=== PATIENT | male | born 1975 | race Asian ===

== ENCOUNTER 2023-11-23 09:42 | Outpatient (AMB) | payer OTHER, SELFPAY ==
[2023-11-23 09:46] VITALS: BP 120/88; PULSE 68; RESP 13; TEMP 36.7; O2SAT 100; BMI 23.8
--- NOTE | 2023-11-23 09:46 | MHC.PC.OV ---
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 Patient carries [employer] insurance. Patient requests routine labs. Patient takes duloxetine, certirizine, methimazole, propranolol. Reinstatement Clerk Required: No Accompanied by: Self / Same As Patient Allergies lamotrigine Allergy (Severe, Verified 11/23/23 10:15) Anaphylaxis Medication List - Last Reconciled 11/24/23 by ROXANNE Anderson- duloxetine 60 mg PO DAILY methimazole 10 mg PO BID propranolol 20 mg PO BID Tobacco use date assessed: 11/23/23 Dental Screening Dental Screen Date: 11/23/23 Did you have a dental visit in the last 12 months?: Yes Did you have a dental problem in the last 6 months where you did not have access to dental care?: No Was dental information given to patient?: Patient has dentist HPI HPI Comments History of Present Illness Details 48 y/o M with graves disease, MDD Surgery - none *[facility] 90 days Health Maintenance: Colon has never had one; referred today for open access colon. Tdap 2016 Specialists: Endo Optho Here today with no previous medical records. 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 Fercho dz - Optho exam in the last year; feels vision is poor at end of the day. Was losing wts, muscle cramps, palps prior to dx. Gained 30 lbs in 6 months after starting treatment Feels bloated at time. Like going to pop [place] w some swelling in his fingers. Comes and goes. Cannot correlate w/ diet. Chronic constipation. Taking miralax and dulcolax. BM every 2-3 days. In the afternoon, 3-4 pm has chills, started in the winter time. MDD - on cymbalta. Feels it is working. PHQ reviewed. Interested in counseling. [facility] Medical History (Updated 11/23/23 @ 10:40 by Vi Rashid [facility]) Depression Graves disease Surgical History (Updated 11/23/23 @ 09:58 by Slime Manrique FRAME ALIGNER) No pertinent past surgical history Social History (Updated 11/23/23 @ 09:58 by Slime Manrique [facility]) Household Members: None Housing: Apartment Are you a primary patient care secretary to a significant other at home: No Do you presently have visiting nurse or other home services: No 75 years or older and lives alone: No Alcohol intake: never Patient Tobacco Use Status: Never used Tobacco e-Cigarette/Vaping Use: Never Used service: Yes ( [employer] ) Current occupational status: employed 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 Has optho.) Questionnaire PHQ-9 Over the last 2 weeks, how often have you been bothered by any of the following problems? 1. Little interest or pleasure in doing things: several days 2. Feeling down, depressed, or hopeless: not at all 3. Trouble falling or staying asleep, or sleeping too much: several days 4. Feeling tired or having little energy: more than half the days 5. Poor appetite or overeating: not at all 6. Feeling bad about yourself - or that you are a failure or have let yourself or your family down: not at all 7. Trouble concentrating on things, such as reading the newspaper or watching television: several days 8. Moving or speaking so slowly that other people could have noticed. Or the opposite - being so fidgety or restless that you have been moving around a lot more than usual: not at all 9. Thoughts that you would be better off or of hurting yourself in some way: not at all Total score: 5 Depression Screening Interpretation: Positive Depression Screening Follow-up: In treatment Depression Screening Done: Yes 01395 - PHQ-9 Billing: Yes Source: Developed by Drs. Ramiro Moreira, Rosita Pereyra, Rachid Barriga and colleagues, with an educational cem from [employer]. Thrive Questionnaire Date Thrive assessed: 11/23/23 I am a: Patient Within the past 12 months, did the food you bought not last and you didn't have the money to get more?: Never true Within the past 12 months, did you worry whether your food would run out before you got money to buy more?: Never true Do you have trouble paying for medicines?: No Do you have trouble getting transportation to medical appointments?: No Do you have trouble paying your heating and electricity bill?: No Do you have trouble taking care of your child, family member or friend?: No Do you have trouble with day-to-day activities such as bathing, preparing meals, shopping, managing finances, etc.?: No Are you currently unemployed and looking for a job?: No Please select the resources that you would like help with: None Currently or been in a relationship where the following occur: no concerns reported THRIVE Score: 0 AUDIT C Alcohol Use Questionnaire (AUDIT-C) 1. How often do you have a drink containing alcohol?: Never 3. How often do you have six or more drinks on one occasion?: Never Total Score: 0 Score Reviewed/Action Taken: Yes MANDI-7 AMB Questionnaire MANDI-7 Date MANDI - 7 assessed: 11/23/23 Feeling nervous, anxious, or on edge: 0 = Not at all Not being able to stop or control worryin = Not at all Worrying too much about different things: 0 = Not at all Trouble relaxin = Not at all Being so restless that it is hard to sit still: 0 = Not at all Becoming easily annoyed or irritable: 1 = Several days Feeling afraid as if something awful might happen: 0 = Not at all Total MANDI-7 score (0-4 normal; 5-9 mild; 10-14 moderate; 15-21 severe): 1 Source: Developed by Drs. Ramiro Moreira, Rosita Pereyra, Rachid Barriga and colleagues, with an educational cem from [employer]. MANDI-7 Assessment Billing MANDI-7 Assessment Tool: MANDI-7 Assessment 30759 Review of Systems Const All systems reviewed & are unremarkable except as noted in HPI and below Physical exam (Primary Care) Vital Signs: Last Vital Signs Temp 98.1 F 11/23/23 09:46 Pulse 68 11/23/23 09:46 Resp 13 11/23/23 09:46 BP 120/88 11/23/23 09:46 Pulse Ox 100 11/23/23 09:46 Oxygen Delivery Method Room Air 11/23/23 09:46 BMI result Body Mass Index 23.8 Tobacco/Smoking Status: Tobacco use Status Tobacco use date assessed 11/23/23 11/23/23 10:01 Patient Tobacco Use Status Never used Tobacco 11/23/23 10:01 e-Cigarette/Vaping Use Never Used 11/23/23 10:01 PHQ-9: PHQ-9 Score PHQ-9: Total score 5 11/23/23 10:41 Depression Screening Interpretation: Positive Depression Screening Follow-up: In treatment Thrive Assessment: Date of Thrive Assessment Date Thrive assessed 11/23/23 11/23/23 10:01 Currently or been in a relationship where the following occur: no concerns reported Const Other: Awake alert NAD PERRLA, EOMI, scleras nonicteric bilat Trachea midline, no thyroid tenderness RRR LS CTAB Abd soft, nontender, normoactive BS x 4 No edema BLE Mood and affect appropriate Assessment and Plan Assessment & Plan (1) Graves disease: Comment: Refer to endo for mgmt & to optho for routine eye exam At this time, cont medications. Code(s): E05.00 - Thyrotoxicosis with diffuse goiter without thyrotoxic crisis or storm (2) MDD (major depressive disorder): Comment: controlled on Cymbalta. Continue. Referred to counseling. Code(s): F32.9 - Major depressive disorder, single episode, unspecified Qualifiers: Active/Remission status: currently active Major depression episode severity: mild Major depression recurrence: recurrent Qualified Code(s): F33.0 - Major depressive disorder, recurrent, mild (3) Abdominal bloating: Comment: referred for colonoscopy and labs ordered Will f/u with labs once resulted. Cont to take Miralax and dulcolax to treat constipation. Code(s): R14.0 - Abdominal distension (gaseous) Plan This note is constructed using voice recognition software. While every effort has been made to ensure accuracy in shearer operator, still errors may have been included Sometimes, these errors may affect the content or meaning of the given sentence . Total time spent caring for the patient today was 45 minutes. This includes time spent before the visit reviewing the chart, time spent during the visit, and time spent after the visit on documentation Orders: Orders Comprehensive Met. Panel 11/23/23 E05.00 - Thyrotoxicosis with diffuse goiter without thyrotoxic crisis or storm LDL Cholesterol Direct 11/23/23 E05.00 - Thyrotoxicosis with diffuse goiter without thyrotoxic crisis or storm PSA, Ultra Sensitive 11/23/23 E05.00 - Thyrotoxicosis with diffuse goiter without thyrotoxic crisis or storm Transglutaminase Ab IgG 11/23/23 R14.0 - Abdominal distension (gaseous) TSH reflex Free T4 11/23/23 E05.00 - Thyrotoxicosis with diffuse goiter without thyrotoxic crisis or storm Hemoglobin A1c 11/23/23 E05.00 - Thyrotoxicosis with diffuse goiter without thyrotoxic crisis or storm Microalbumin, Random (w Creat) 11/23/23 E05.00 - Thyrotoxicosis with diffuse goiter without thyrotoxic crisis or storm Amylase 11/23/23 R14.0 - Abdominal distension (gaseous) Lipase 11/23/23 R14.0 - Abdominal distension (gaseous) Hepatitis A,B,C Profile 11/23/23 R14.0 - Abdominal distension (gaseous) Transglutaminase IgA 11/23/23 R14.0 - Abdominal distension (gaseous) Referrals Endocrinology Referral E05.00 - Thyrotoxicosis with diffuse goiter without thyrotoxic crisis or storm Ophthalmology Referral E05.00 - Thyrotoxicosis with diffuse goiter without thyrotoxic crisis or storm Counseling Referral F32.9 - Major depressive disorder, single episode, unspecified Open Access Screening Colonoscopy Referral Z12.11 - Encounter for screening for malignant neoplasm of colon, Z12.12 - Encounter for screening for malignant neoplasm of rectum Medications: New methimazole 10 mg PO BID 180 tabs 0RF duloxetine 60 mg PO DAILY 90 caps 1RF propranolol 20 mg PO BID 180 tabs 0RF Patient Instructions: RTO IN 4-6 MONTHS FOR CPE, SOONER PRN Coding Level of Care Code New Pt Level 4 (11749) Diagnoses Graves disease E05.00 Mild episode of recurrent major depressive disorder F33.0 Active/Remission status: currently active Major depression episode severity: mild Major depression recurrence: recurrent Abdominal bloating R14.0 Additional Codes MANDI-7 Assessment Billing - MANDI-7 Assessment Tool: MANDI-7 Assessment 23048 ([id number])
== END 2023-11-23 10:47 | disposition home or self-care (01) ==
PROVIDERS: PCP Nurse Practitioner Family; Visit Provider Nurse Practitioner Family
DX: E05.00 Thyrotoxicosis with diffuse goiter without thyrotoxic crisis or storm (principal); F33.0 Major depressive disorder, recurrent, mild; R14.0 Abdominal distension (gaseous)
CPT/HCPCS: 99204

== ENCOUNTER 2023-11-23 10:34 | Outpatient (REF) | payer OTHER, SELFPAY ==
[2023-11-23 15:36] LABS: Creatinine Urine 123.52 mg/dL; Microalbumin Urine < 5.0 mg/L
[2023-11-23 15:50] LABS: Estimated Average Glucose 126 mg/dL
[2023-11-23 15:59] LABS: Alanine Aminotransferase 24 U/L (0-40); Albumin Level 4.5 g/dL (3.5-5.0); Alkaline Phosphatase 163 U/L (39-117); Amylase 60 U/L (28-100); Anion Gap 11 (12-20); Aspartate Amino Transferase 26 U/L (5-37); Bilirubin Total 0.4 mg/dL (0.0-1.0); Blood Urea Nitrogen 14 mg/dL (9-16); Calcium 9.5 mg/dL (8.4-10.2); Carbon Dioxide 29 mmol/L (22-29); Chloride 101 mmol/L (96-108); Estimated Glomerular Filt Rate > 60; Glucose Random 112 mg/dL (60-115); Lipase 32 U/L (8-78); Potassium 4.4 mmol/L (3.3-5.1); Sodium 137 mmol/L (135-145); Total Protein 7.6 g/dL (6.5-8.0)
[2023-11-23 16:39] LABS: TSH reflex Free T4 4.17 uIU/mL (0.32-4.0)
[2023-11-23 17:47] LABS: Free T4 (Free Thyroxine) 1.01 ng/dL (0.71-1.85)
[2023-11-24 08:08] LABS: HBS Num1 275.55 mIU/mL (0-7.99); HBc Num1 0.11 S/CO (0.00-0.79); HBsAGNum1 0.33 S/CO (0.00-0.99); Hepatitis A Antibody IgM 0.45 Index (0-0.79); Hepatitis B Core Antibody Nonreactive (Nonreactive); Hepatitis B Surface Antigen Negative (Negative); ~HepC Num1 0.08 S/CO (0.00-0.79); ~Hepatitis A Antibody IgM Nonreactive (Nonreactive); ~Hepatitis B Surface Antibody REACTIVE (Nonreactive); ~Hepatitis C Antibody Nonreactive (Nonreactive)
[2023-11-24 11:23] LABS: LDL Cholesterol Direct 152 mg/dL (<100)
[2023-11-24 20:48] LABS: Transglutaminase Ab IgG <1.0 U/mL; Transglutaminase IgA <1.0 U/mL
[2023-11-29 23:28] LABS: PSA, Ultra Sensitive 0.15 ng/mL
== END 2023-11-23 10:35 | disposition home or self-care (01) ==
LOC: HO.WFDLDS 10:34
PROVIDERS: Visit Provider Nurse Practitioner Family
DX: R14.0 Abdominal distension (gaseous) (principal); E05.00 Thyrotoxicosis with diffuse goiter without thyrotoxic crisis or storm; Z12.5 Encounter for screening for malignant neoplasm of prostate
CPT/HCPCS: 36415; 80053; 82043; 82150; 82570; 83036; 83690; 83721; 84153; 84439; 84443; 86364; 86704; 86706; 86709; 86803; 87340

== ENCOUNTER 2024-03-12 08:02 | Outpatient (AMB) | payer OTHER, SELFPAY ==
--- NOTE | 2024-03-12 08:03 | MHC.PC.OV ---
Vital Signs 03/12/24 08:10 Height 5 ft 7 in Weight 148 lb 2 oz BMI 23.2 BP 122/84 Blood Pressure Location Lt brachial Position Sitting Respiration 14 Pulse 95 Pulse Source Pulse Oximeter Pulse Oximetry (%) 94 Oxygen Delivery Method Room Air Intake Visit Reasons: 4-6 months CPE with me Intake Note: Physical Allergies lamotrigine Allergy (Severe, Verified 03/12/24 08:20) Anaphylaxis Medication List - Last Reconciled 03/12/24 by Vi Rashid, [facility]- duloxetine 60 mg PO DAILY Tobacco use date assessed: 03/12/24 Dental Screening Dental Screen Date: 11/23/23 HPI HPI Comments History of Present Illness Details 48 y/o M with graves disease, MDD, prediabetes, hyperlipidemia Surgery - none 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 Did have appt w/ Endo. Advised to stop methimazole, did this a few weeks ago. Feeling normal since stopping. has routine fu scheduled. Never got a call to schedule eye appt or colon. Asked to get this info from front end java developer today to schedule. Did hear from counseling but forgot to f/u. He will f/u on this. Admits to lack of follow through in general. Scatter brain sometimes. Discloses to me today for the 1st time that he has a child who lives in [place] who is terminally ill. She is 17 years old. He also reports that his is living in [place]. She is unable to relocate to [place] to live with him. He moved here for his current job, of which he values. 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 He is thinking about relocating back to [place] to be with his as well as to be closer to his daughter. GI: cont w/ chronic constipation. However bloating is better. Has lost some wt. MS: Right hip, acute on chronic intermittent pain. Last few weeks, feels achy, keeps him up @ night. Using meloxicam at HS and this helped. Has never seen Ortho for this. No physical therapy or imaging. Denies overt trauma, numbness, tingling. Describes pain as dull. Has tried stretching. Reviewed the following with him: Labs from 11/24/2023 show electrolytes, normal renal function, hemoglobin A1c of 6.0 163 LFTs, LDL elevated at 152, amylase and lipase normal, TSH 4.17, T4 1.01 normal urine microalbumin creatinine ratio, negative tissue transglutaminase IgG antibody, negative tissue transglutaminase IgA antibody, negative hepatitis profile, PSA normal, Plan: Start atorvastatin 20mg QD, repeat labs 6 months with OV. Life style mods. Lifestyle modifications for the prediabetes Nurse navigator referral for help access and resources for support groups related to having an ill child Offered and declined referral to Orthopedics and or x-ray of right hip today. Unremarkable physical exam. Advised to continue stretching. If any worsening, advised to let me know. repeat hemoglobin A1c and lipid profile in 6 months with an office visit to follow up. This note is constructed using voice recognition software. While every effort has been made to ensure accuracy in dog bather, still errors may have been included Sometimes, these errors may affect the content or meaning of the given sentence . [facility] Medical History (Updated 03/12/24 @ 12:28 by Vi Rashid [facility]) Depression Graves disease Surgical History (Updated 11/23/23 @ 09:58 by Slime Manrique [facility]) No pertinent past surgical history Social History (Updated 11/23/23 @ 09:58 by Slime Manrique [facility]) Household Members: None Housing: Apartment Are you a primary animal care technician to a significant other at home: No Do you presently have visiting nurse or other home services: No 75 years or older and lives alone: No Alcohol intake: never Patient Tobacco Use Status: Never used Tobacco e-Cigarette/Vaping Use: Never Used service: Yes ( [employer] ) Current occupational status: employed 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 Cognitive needs: No Hearing needs: No Vision needs: Yes (wears glasses- near sighted. Has optho.) Questionnaire PHQ-9 Over the last 2 weeks, how often have you been bothered by any of the following problems? 1. Little interest or pleasure in doing things: several days 2. Feeling down, depressed, or hopeless: several days 3. Trouble falling or staying asleep, or sleeping too much: several days 4. Feeling tired or having little energy: several days 5. Poor appetite or overeating: not at all 6. Feeling bad about yourself - or that you are a failure or have let yourself or your family down: not at all 7. Trouble concentrating on things, such as reading the newspaper or watching television: not at all 8. Moving or speaking so slowly that other people could have noticed. Or the opposite - being so fidgety or restless that you have been moving around a lot more than usual: not at all 9. Thoughts that you would be better off or of hurting yourself in some way: not at all Total score: 4 Depression Screening Interpretation: Positive Depression Screening Done: Yes 94698 - PHQ-9 Billing: Yes Source: Developed by Drs. Ramiro Moreira, Rachid Johnston and colleagues, with an educational cem from [employer]. Thrive Questionnaire Date Thrive assessed: 11/23/23 MANDI-7 AMB Questionnaire MANDI-7 Date MANDI - 7 assessed: 03/12/24 Feeling nervous, anxious, or on edge: 0 = Not at all Not being able to stop or control worryin = Not at all Worrying too much about different things: 0 = Not at all Trouble relaxin = Not at all Being so restless that it is hard to sit still: 0 = Not at all Becoming easily annoyed or irritable: 1 = Several days Feeling afraid as if something awful might happen: 0 = Not at all Total MANDI-7 score (0-4 normal; 5-9 mild; 10-14 moderate; 15-21 severe): 1 Source: Developed by Drs. Ramiro Moreira, Rachid Johnston and colleagues, with an educational cem from [employer]. MANDI-7 Assessment Billing MANDI-7 Assessment Tool: MANDI-7 Assessment 24126 Physical exam (Primary Care) Vital Signs: Last Vital Signs Pulse 95 03/12/24 08:10 Resp 14 08/05/24 08:10 BP 122/84 03/12/24 08:10 Pulse Ox 94 03/12/24 08:10 Oxygen Delivery Method Room Air 03/12/24 08:10 BMI result Body Mass Index 23.2 Tobacco/Smoking Status: Tobacco use Status Tobacco use date assessed 03/12/24 03/12/24 08:12 Patient Tobacco Use Status Never used Tobacco 03/12/24 08:03 e-Cigarette/Vaping Use Never Used 03/12/24 08:03 PHQ-9: PHQ-9 Score PHQ-9: Total score 4 03/12/24 08:15 Depression Screening Interpretation: Positive Thrive Assessment: Date of Thrive Assessment Date Thrive assessed 11/23/23 03/12/24 08:03 Const Other: General: Well developed, well nourished, in no acute distress. Appears stated age. Head: Normocephalic, atraumatic. Eyes: Pupils are equal, round and reactive to light and accommodation. Conjunctivae are clear. Vision grossly normal. Ears: TMs clear AU, EACS WNL Nose: Patent, without discharge. Mouth: There are no ulcers or lesions noted. No inflammation, no post nasal drip, no plaques nor exudates. Neck: Supple, no adenopathy or thyromegaly. Lungs: Clear to auscultation bilaterally. No rales, rhonchi or wheeze noted. Good air flow in all phillips. Heart: Regular rate and rhythm. No murmurs, click, rubs or gallops are noted. Abdomen: Bowel sounds present in all quadrants. The abdomen is soft, nontender, with no masses or organomegaly noted. No hernias are noted. Musculoskeletal: Joints are nontender, without swelling, redness, or effusions. Range of motion is observed to be normal. Pulses: Peripheral pulses are equal and palpable bilaterally. Full range of motion right hip, unable to reproduce the pain that he complains of. Extremities: No clubbing, cyanosis nor edema is noted. Neurologic: Gait and station normal. Cranial Nerves 2-12 intact. Motor strength grossly symmetrical and intact. No sensory loss. Balance normal. Skin: No rashes, ulcers, or lesions noted. Turgor is good. Skin color is good. Hair and nails are without abnormalities. Psych: Normal eye contact, affect and mood appropriate, and normal interactions. Patient is alert and appropriate to context. Assessment and Plan Assessment & Plan (1) Encounter for general adult medical examination without abnormal findings: Code(s): Z00.00 - Encounter for general adult medical examination without abnormal findings (2) MDD (major depressive disorder): Comment: controlled on Cymbalta. Continue. Referred to counseling. Code(s): F32.9 - Major depressive disorder, single episode, unspecified Qualifiers: Active/Remission status: currently active Major depression episode severity: mild Major depression recurrence: recurrent Qualified Code(s): F33.0 - Major depressive disorder, recurrent, mild (3) Hyperlipidemia: Code(s): E78.5 - Hyperlipidemia, unspecified Qualifiers: Hyperlipidemia type: mixed hyperlipidemia Qualified Code(s): E78.2 - Mixed hyperlipidemia (4) Prediabetes: Code(s): R73.03 - Prediabetes (5) Graves disease: Comment: active w/ endo for mgmt & to optho for routine eye exam Code(s): E05.00 - Thyrotoxicosis with diffuse goiter without thyrotoxic crisis or storm (6) Chronic right hip pain: Code(s): M25.551 - Pain in right hip; G89.29 - Other chronic pain Orders: Orders Lipid Panel 08/08/24 E78.5 - Hyperlipidemia, unspecified, R73.03 - Prediabetes Hemoglobin A1c 08/08/24 E78.5 - Hyperlipidemia, unspecified, R73.03 - Prediabetes Referrals Nurse Navigator Referral F33.0 - Major depressive disorder, recurrent, mild Medications: New atorvastatin 20 mg PO BEDTIME 90 tabs 1RF Patient Instructions: Health screenings for men ages 40 to 64 You should visit your health care provider regularly, even if you feel healthy. The purpose of these visits is to: Screen for medical issues Assess your risk for future medical problems Encourage a healthy lifestyle Update vaccinations and other preventive care services Help you get to know your provider in case of an illness Information Even if you feel fine, you should still see your provider for regular checkups. These visits can help you avoid problems in the future. For example, the only way to find out if you have high blood pressure is to have it checked regularly. High blood sugar and high cholesterol level also may not have any symptoms in the early stages. Simple blood tests can check for these conditions. There are specific times when you should see your provider or receive specific health screenings. The [place] Preventive Services Task Force publishes a list of recommended screenings. Below are screening guidelines for men ages 40 to 64. BLOOD PRESSURE SCREENING Have your blood pressure checked at least once every year. Watch for blood pressure screenings in your area. Ask your provider if you can stop in to have your blood pressure checked. Ask your provider if you need your blood pressure checked more often if: You have diabetes, heart disease, kidney problems, or are overweight or have certain other health conditions You have a first-degree relative with high blood pressure You are Black Your blood pressure top number is from 120 to 129 mm Hg, or the bottom number is from 70 to 79 mm Hg If the top number is 130 mm Hg or greater or the bottom number is 80 mm Hg or greater, this is considered stage 1 hypertension. Schedule an appointment with your provider to learn how you can lower your blood pressure. Effects of age on blood pressure CHOLESTEROL SCREENING Cholesterol screening should begin at age 35 for men with no known risk factors for coronary heart disease. Repeat cholesterol screening should take place: Every 5 years for men with normal cholesterol levels More often if changes occur in lifestyle (including weight gain and diet) More often if you have diabetes, heart disease, kidney problems, or certain other conditions COLORECTAL CANCER SCREENING If you are under age 45, talk to your provider about getting screened. You may need to be screened if you have a strong family history of colon cancer or polyps. Screening may also be considered if you have risk factors such as a history of inflammatory bowel disease or polyps. If you are age 45 to 75, you should be screened for colorectal cancer. There are several screening tests available: A stool-based fecal occult blood (gFOBT) or fecal immunochemical test (FIT) every year A stool sDNA test every 1 to 3 years Flexible sigmoidoscopy every 5 years or every 10 years with stool testing FIT done every year CT colonography (virtual colonoscopy) every 5 years Colonoscopy every 10 years You may need a colonoscopy more often if you have risk factors for colorectal cancer, such as: Ulcerative colitis A personal or family history of colorectal cancer A history of growths in your colon called adenomatous polyps DENTAL EXAM Go to the dentist once or twice every year for an exam and cleaning. Your dentist will evaluate if you have a need for more frequent visits. DIABETES SCREENING All adults who do not have risk factors for diabetes should be screened starting at age 35 and repeated every 3 years. If you have other risk factors for diabetes, such as a first degree relative with diabetes, overweight or obesity, high blood pressure, prediabetes, or a history of heart disease, you may be tested more often. If you are overweight and have other risk factors, such as high blood pressure and are planning to become , screening is recommended. EYE EXAM Have an eye exam every 2 to 4 years ages 40 to 54 and every 1 to 3 years ages 55 to 64. Your provider may recommend more frequent eye exams if you have vision problems or glaucoma risk. Have an eye exam that includes an examination of your retina (back of your eye) at least every year if you have diabetes. IMMUNIZATIONS Commonly needed vaccines include: Flu shot: get one every year COVID-19 vaccine: ask your provider what is best for you Tetanus-diphtheria and acellular pertussis (Tdap) vaccine: have as one of your tetanus-diphtheria vaccines if you did not receive it as an adolescent Tetanus-diphtheria: have a booster (or Tdap) every 10 years Varicella vaccine: receive 2 doses if you never had chickenpox or the varicella vaccine and were born in 1980 or after Hepatitis B vaccine: receive 2, 3, or 4 doses, depending on your exact circumstances, if you did not receive these as a child or adolescent, until age 59 Shingles (herpes zoster) vaccine: at or after age 50 Ask your provider if you should receive other immunizations, especially if you have certain medical conditions, such as diabetes or are at increased risk for some diseases such as pneumonia. INFECTIOUS DISEASE SCREENING Screening for hepatitis C: all adults ages 18 to 79 should get a one-time test for hepatitis C. Screening for human immunodeficiency virus (HIV): all people ages 15 to 65 should get a one-time test for HIV. Depending on your lifestyle and medical history, you may need to be screened for infections such as syphilis, chlamydia, and other infections. LUNG CANCER SCREENING You should have an annual screening for lung cancer with low-dose computed tomography (LDCT) if: You are age 50 to 80 years AND You have a 20 pack-year smoking history AND You currently smoke or have quit within the past 15 years OSTEOPOROSIS SCREENING If you are age 50 to 64 and have risk factors for osteoporosis, you should discuss screening with your provider. Risk factors can include long-term steroid use, low body weight, smoking, heavy alcohol use, having a fracture after age 50, or a family history of hip fracture or osteoporosis. Osteoporosis PHYSICAL EXAM All adults should visit their provider from time to time, even if they are healthy. The purpose of these visits is to: Screen for diseases Assess risk of future medical problems Encourage a healthy lifestyle Update vaccinations and other preventive care services Maintain a relationship with a provider in case of an illness Your height, weight, and body mass index (BMI) should be checked at every exam. During your exam, your provider may ask you about: Depression and anxiety Diet and exercise Alcohol and tobacco use Safety, such as use of seat belts and smoke detectors Your medicines and risk for interactions PROSTATE CANCER SCREENING If you're 55 through 69 years old, before having the test, talk to your provider about the pros and cons of having a PSA test. Ask about: Whether screening decreases your chance of dying from prostate cancer. Whether there is any harm from prostate cancer screening, such as side effects from testing or overtreatment of cancer when discovered. Whether you have a higher risk of prostate cancer than others. If you are age 55 or younger, screening is not generally recommended. You should talk with your provider about if you have a higher risk for prostate cancer. Risk factors include: Having a family history of prostate cancer (especially a brother or father) Being If you choose to be tested, the PSA blood test is repeated over time (yearly or less often), though the best frequency is not known. Prostate examinations are no longer routinely done on men with no symptoms. Prostate cancer SKIN EXAM Your provider may check your skin for signs of skin cancer, especially if you're at high risk. People at high risk include those who have had skin cancer before, have close relatives with skin cancer, or have a weakened immune system. TESTICULAR EXAM The US Preventive Services Task Force (USPSTF) now recommends against performing testicular self-exams. Doing testicular self-exams has been shown to have little to no benefit. Coding Level of Care Code Est Pt Prev Care 40-64y(27971) Diagnoses Encounter for general adult medical examination without abnormal findings Z00.00 Mild episode of recurrent major depressive disorder F33.0 Active/Remission status: currently active Major depression episode severity: mild Major depression recurrence: recurrent Mixed hyperlipidemia E78.2 Hyperlipidemia type: mixed hyperlipidemia Prediabetes R73.03 Graves disease E05.00 Chronic right hip pain M25.551; G89.29 Additional Codes MANDI-7 Assessment Billing - MANDI-7 Assessment Tool: MANDI-7 Assessment 30253 ([id number])
[2024-03-12 08:10] VITALS: BP 122/84; PULSE 95; RESP 14; O2SAT 94; BMI 23.2
== END 2024-03-12 08:52 | disposition home or self-care (01) ==
PROVIDERS: PCP Nurse Practitioner Family; Visit Provider Nurse Practitioner Family
DX: Z00.00 Encounter for general adult medical examination without abnormal findings (principal); F33.0 Major depressive disorder, recurrent, mild; E78.2 Mixed hyperlipidemia; R73.03 Prediabetes; E05.00 Thyrotoxicosis with diffuse goiter without thyrotoxic crisis or storm; M25.551 Pain in right hip; G89.29 Other chronic pain
CPT/HCPCS: 99396

== ENCOUNTER 2024-10-11 08:27 | Outpatient (AMB) | payer OTHER, SELFPAY ==
--- NOTE | 2024-10-11 08:28 | A.OFFPC_ITS ---
Vital Signs 10/11/24 08:33 Height 5 ft 7 in Weight 152 lb 6 oz BMI 23.9 BP 134/76 Blood Pressure Location Rt brachial Position Sitting Respiration 13 Pulse 93 Pulse Source Pulse Oximeter Temp 96.9 F Temp Source Oral Pulse Oximetry (%) 98 Oxygen Delivery Method Room Air Intake Visit Reasons: 6m 30 min lipids/ prediabetes Intake Note: follow up on prediabetes Risk Officer Required: No Allergies lamotrigine Allergy (Severe, Verified 10/11/24 08:45) Anaphylaxis Medication List - Last Reconciled 10/11/24 by Vi Rashid, CORPORATE SECURITY OFFICER- atomoxetine mg PO QAM atorvastatin 20 mg PO BEDTIME duloxetine 40 mg PO DAILY duloxetine mg PO DAILY valacyclovir mg PO PRN Tobacco use date assessed: 10/11/24 Dental Screening Dental Screen Date: 10/11/24 Did you have a dental visit in the last 12 months?: Yes Did you have a dental problem in the last 6 months where you did not have access to dental care?: No Was dental information given to patient?: Patient has dentist HPI HPI Comments History of Present Illness Details 49 y/o M with graves disease, MDD, predi abetes, hyperlipidemia, ADHD Surgery - none 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 - Graves' Disease management is coordina anny with endocrinology, missed last appt - Depression is managed with duloxetine, with plans to transition to atomoxetine following a decrease to 40 mg and increase of atomoxetine to 60 mg. The patient reports passive suicidal ideation, prompting psychiatric and counseling referrals. active w/ med rx but not counselor, working on this. new dx adhd - Hyperlipidemia is managed with atorvas tatin for 6 months, though the patient reports joint pain which might be associated with the medication. stopped it w/ no improvement, restarted it. changed diet. - Improved prediabetes management throug h dietary alterations has resulted in an A1c decrease from 6% to 5.3%. - Herpes Simplex Virus is managed with a s-needed valaciclovir, with no acute issues reported. - ADHD diagnosis has led to medication c hanges, with difficulties in scheduling and managing tasks noted. - The patient reports stress related to family affairs and job workload, impacting mental health. - Employed, experiencing increased workl oad. - Spouse is currently not residing with the patient, affecting emotional well- being. - Patient reports stress related to fami ly and professional responsibilities and mentions a sedentary lifestyle. - Occasional consumption of [employer] af fecting sleep patterns. Health Maintenance - A1c levels improved to 5.3% with dieta ry modifications. - Currently managing hyperlipidemia with atorvastatin. - Psychiatric and counseling referrals s uggested for cognitive and emotional support. - Ophthalmology referral has not been pu rsued yet. - Endocrinology follow-up for Graves' Di sease has lapsed, requiring updated labs including thyroid function tests. Review of Systems - Psychiatric: Reports passive suicidal ideation, ongoing depressive symptoms, and ADHD-related difficulties. - Musculoskeletal: Reports intermittent right hip pain. - Gastrointestinal: Reports constipation and bloating; using MiraLAX. - Neurology: Reports occasional dizzines s upon posture change. - General: Denies current acute physical complaints. Exam awake alert NAD scleras nonicteric thyroid nontender RRR LS CTAB Abd soft, nontender No edema BLE Mood flat, engaging, soft spoken Results - Labs: A1c level is 5.3%; Thyroid funct ion tests & cholesterol profile pending update post-consultation. Discussion Notes Today, I discussed the comprehensive management plan for the patient's chronic conditions, focusing on the appropriate adjustments in medication for depression and ADHD, managing hyperlipidemia, and maintaining glycemic control. I emphasized the need for compliance with endocrinology follow-ups for Graves' Disease and encouraged pursuit of ophthalmology and counseling referrals. We reviewed the potential side effects of atorvastatin and its possible link to musculoskeletal pain. Additionally, I advised the patient to contact support resources should his depressive symptoms worsen, and provided crisis contact information for urgent help. I obtained verbal consent from the patient for the planned lab tests and reiterated the importance of regular monitoring and timely management of all health conditions. Follow-up will be coordinated through the patient portal, ensuring he remains informed of his laboratory results once available. Assessment and Plan 1. Graves' Disease: Endocrinology follow -up required, with thyroid function assessment planned. Diagnostic labs will be ordered. 2. Major Depressive Disorder: Managing w ith duloxetine; transitioning to atomoxetine increased to 60 mg. Counseling services are suggested, and crisis support information was provided. 3. Hyperlipidemia: Continue atorvastatin therapy, with consideration of muscle pain assessment in follow-up. 4. Prediabetes: Monitor progress; dietar y management is effective. 5. Herpes Simplex Virus: Continue PRN tr eatment with valaciclovir. 6. Attention-Deficit/Hyperactivity Disor josie: Ongoing atomoxetine titration to 60 mg; patient support services are advised. Patient Instructions - Follow up with endocrinology for Grave s' Disease management. - Continue duloxetine as prescribed; rep ort any worsening depressive symptoms. - Monitor hip pain and inform if symptom s persist or worsen. - Maintain dietary changes for glycemic control. - Contact emergency support if experienc ing suicidal thoughts. - Pursue counseling services for depress daniel symptoms and supportive therapy. - Ensure compliance with regular lab stefano ck-ups and results tracking via the patient portal. - Schedule and attend ophthalmology and counseling referrals when possible. - RTO 6 months CPE sooner PRN Consent I discussed the goals and risks of all recommended lab tests and medication changes with the patient, emphasizing the importance of managing his chronic conditions adequately. The patient provided verbal consent for laboratory evaluations scheduled today, understanding both the benefits of ongoing monitoring and potential adverse effects of current medications. Patient was informed and verbally consented to the use of an ambient scribe for clinic note documentation during this visit. Total time spent caring for the patient today was 45 minutes. This includes time spent before the visit reviewing the chart, time spent during the visit, and time spent after the visit on documentation, reviewing laboratory results, diagnostic imaging, medications, performing a medically necessary evaluation, counseling on diagnoses, care coordination, ordering appropriate tests, ordering appropriate medications, review of tests performed by other providers, reporting test results with the patient, communication with other healthcare providers. [facility] Medical History (Updated 10/11/24 @ 17:23 by ROXANNE Anderson-) Depression Graves disease Surgical History (Updated 11/23/23 @ 09:58 by Slime Manrique [facility]) No pertinent past surgical history Social History (Updated 11/23/23 @ 09:58 by SHASHANK Harding Household Members: None Housing: Apartment Are you a primary caregiver services home to a significant other at home: No Do you presently have visiting nurse or other home services: No Alcohol intake: never Patient Tobacco Use Status: Never used Tobacco e-Cigarette/Vaping Use: Never Used service: Yes ( ) Current occupational status: employed 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 Has optho.) Questionnaire PHQ-9 Over the last 2 weeks, how often have you been bothered by any of the following problems? 1. Little interest or pleasure in doing things: not at all 2. Feeling down, depressed, or hopeless: not at all 3. Trouble falling or staying asleep, or sleeping too much: not at all 4. Feeling tired or having little energy: not at all 5. Poor appetite or overeating: not at all 6. Feeling bad about yourself - or that you are a failure or have let yourself or your family down: not at all 7. Trouble concentrating on things, such as reading the newspaper or watching television: not at all 8. Moving or speaking so slowly that other people could have noticed. Or the opposite - being so fidgety or restless that you have been moving around a lot more than usual: not at all 9. Thoughts that you would be better off or of hurting yourself in some way: not at all Total score: 0 Depression Screening Interpretation: Negative Depression Screening Done: Yes 69569 - PHQ-9 Billing: Yes Source: Developed by Drs. Ramiro Moreira, Rosita Pereyra, Rachid Barriga and colleagues, with an educational cem from [employer]. Thrive Questionnaire Date Thrive assessed: 10/11/24 I am a: Patient What is your living situation today?: I have a steady place to live Within the past 12 months, did the food you bought not last and you didn't have the money to get more?: Never true Within the past 12 months, did you worry whether your food would run out before you got money to buy more?: Never true Do you have trouble paying for medicines?: No Do you have trouble getting transportation to medical appointments?: No Do you have trouble paying your heating and electricity bill?: No Do you have trouble taking care of your child, family member or friend?: No Do you have trouble with day-to-day activities such as bathing, preparing meals, shopping, managing finances, etc.?: No Are you currently unemployed and looking for a job?: No Are you interested in more education?: No Currently or been in a relationship where the following occur: No concerns reported THRIVE Score: 0 AUDIT C Alcohol Use Questionnaire (AUDIT-C) 1. How often do you have a drink containing alcohol?: Never 3. How often do you have six or more drinks on one occasion?: Never Total Score: 0 Score Reviewed/Action Taken: Yes MANDI-7 AMB Questionnaire MANDI-7 Date MANDI - 7 assessed: 10/11/24 Feeling nervous, anxious, or on edge: 0 = Not at all Not being able to stop or control worryin = Not at all Worrying too much about different things: 0 = Not at all Trouble relaxin = Not at all Being so restless that it is hard to sit still: 0 = Not at all Becoming easily annoyed or irritable: 0 = Not at all Feeling afraid as if something awful might happen: 0 = Not at all Total MANDI-7 score (0-4 normal; 5-9 mild; 10-14 moderate; 15-21 severe): 0 Source: Developed by Drs. Ramiro Moreira, Rosita Pereyra, Rachid Barriga and colleagues, with an educational cem from [employer]. MANDI-7 Assessment Billing MANDI-7 Assessment Tool: MANDI-7 Assessment 21517 Physical exam (Primary Care) Vital Signs: Last Vital Signs Temp 96.9 F 10/11/24 08:33 Pulse 93 10/11/24 08:33 Resp 13 10/11/24 08:33 BP 134/76 10/11/24 08:33 Pulse Ox 98 10/11/24 08:33 Oxygen Delivery Method Room Air 10/11/24 08:33 BMI result Body Mass Index 23.9 Tobacco/Smoking Status: Tobacco use Status Tobacco use date assessed 10/11/24 10/11/24 08:31 Patient Tobacco Use Status Never used Tobacco 10/11/24 08:31 e-Cigarette/Vaping Use Never Used 10/11/24 08:31 PHQ-9: PHQ-9 Score PHQ-9: Total score 0 10/11/24 08:56 Depression Screening Interpretation: Negative Thrive Assessment: Date of Thrive Assessment Date Thrive assessed 10/11/24 10/11/24 08:31 Currently or been in a relationship where the following occur: No concerns reported Results AMB Hemoglobin A1c AMB Hemoglobin A1c 5.3 % Last Edit by Sanjay Bajwa MA on 10/11/24 08:47 Results Reviewed Results Reviewed: Laboratory Last Values Hgb A1c (Clinic) 5.3 % (4.0-6.0) 10/11/24 08:45 Coding Level of Care Code Est Pt Level 5 (48506) Complex EM visit Add On G2211 Diagnoses Graves disease E05.00 Mixed hyperlipidemia E78.2 Hyperlipidemia type: mixed hyperlipidemia Mild episode of recurrent major depressive disorder F33.0 Active/Remission status: currently active Major depression episode severity: mild Major depression recurrence: recurrent Prediabetes R73.03 Attention deficit hyperactivity disorder (ADHD), predominantly inattentive type F90.0 Attention deficit-hyperactivity disorder type: predominantly inattentive Additional Codes MANDI-7 Assessment Billing - MANDI-7 Assessment Tool: MANDI-7 Assessment 95132 ([id number]) PHQ-9 - 20070 - PHQ-9 Billing: Yes ([id number]) Assessment & Plan Assessment & Plan (1) Graves disease: Comment: active w/ endo for mgmt & to optho for routine eye exam Code(s): E05.00 - Thyrotoxicosis with diffuse goiter without thyrotoxic crisis or storm Category: Medical (2) Hyperlipidemia: Code(s): E78.5 - Hyperlipidemia, unspecified Category: Medical Qualifiers: Hyperlipidemia type: mixed hyperlipidemia Qualified Code(s): E78.2 - Mixed hyperlipidemia (3) MDD (major depressive disorder): Comment: on Cymbalta. Continue. Referred to counseling. Code(s): F32.9 - Major depressive disorder, single episode, unspecified Category: Medical Qualifiers: Active/Remission status: currently active Major depression episode severity: mild Major depression recurrence: recurrent Qualified Code(s): F33.0 - Major depressive disorder, recurrent, mild (4) Prediabetes: Code(s): R73.03 - Prediabetes Category: Medical (5) ADHD: Code(s): F90.9 - Attention-deficit hyperactivity disorder, unspecified type Category: Medical Qualifiers: Attention deficit-hyperactivity disorder type: predominantly inattentive Qualified Code(s): F90.0 - Attention-deficit hyperactivity disorder, predominantly inattentive type Plan . Orders: Orders AMB Hemoglobin A1c Today Z13.9 - Encounter for screening, unspecified TSH reflex Free T4 Today E05.00 - Thyrotoxicosis with diffuse goiter without thyrotoxic crisis or storm, E78.2 - Mixed hyperlipidemia, R73.03 - Prediabetes Comprehensive Met. Panel Today E05.00 - Thyrotoxicosis with diffuse goiter without thyrotoxic crisis or storm, E78.2 - Mixed hyperlipidemia, R73.03 - Prediabetes Medications: Changed From duloxetine 60 mg PO DAILY 90 caps 1RF To duloxetine 40 mg PO DAILY Patient Instructions: Crisis Hotlines Suicide prevention, domestic violence, and other crisis hotlines for youth, young adults, and their friends and families. [facility] [facility]: The [employer] Safeline helps youth who have run away, are thinking about running away, or who already ran away but are ready to come home. Parents and guardians can also contact the hotline if they are worried about their child running away or if their child has already left home. The hotline is available 24 hours a day, seven days a week. Youth, parents, and guardians can also use the online chat feature on the [facility]'s website to ask for help and get support, or [place] [address]. [facility] National Suicide Prevention Lifeline: The National Suicide Prevention Lifeline is a network of local crisis centers that are available 28/02 to provide support for youth and adults who are in any kind of emotional crisis. In addition to the main hotline number listed above, there are several other numbers to call depending on your needs: Serbian Language: Deaf and Hard of Hearin1-933.114.7474 Veterans: Disaster Distress: Anyone can also use their online chat feature on their website. National Suicide Prevention Lifeline [facility] Helpline: The [facility] Helpline is available to anyone in [place] who is need of emotional support. Anyone can call or text the helpline to receive help from specially trained volunteers. [place] high school and college students can also get online support through the IMHear_ program. For high school students, volunteers ages 15-18 are available Tuesday- from 6-9PM. For college students, [employer]_ is available Tuesday-Tuesday from 5-9PM. The Tommy Project - The Tommy Project is a 28/02 crisis intervention and suicide prevention hotline for LGBTQ youth. Youth can also text Tommy to for support, or use the online chat feature on the Tommy Project's website. [employer] is available Tuesday-Tuesday between 3-10PM. [employer] is available seven days a week between 3-10PM. SafeLink: SafeLink is for anyone who is being affected by domestic violence or dating violence. Volunteers at [employer] speak Japanese and Serbian, and [employer] also has a service that can provide translation in more than 130 languages. TTY:
[2024-10-11 08:33] VITALS: BP 134/76; PULSE 93; RESP 13; TEMP 36.1; O2SAT 98; BMI 23.9
--- OUTSIDE RECORDS SUMMARY | 2024-10-11 08:49 | XMS_ITS | Continuity of Care Document ---
Author Organization [facility] [address] [facility] [address] [facility] [address] [place] [address] Phone [phone] Problems Active Problems Provider Date Graves' disease Pan Tee M.D. Onset: 0 02/08/2024 Social History Type Date Description Comments Sex Unknown Lives With Spouse ETOH Use Denies alcohol use Tobacco Use Start: Unknown Patient has never smoked Allergies and adverse reactions Active Allergies Criticality Reaction Severity Comments Date Lamotrigine Unable to assess criticality 02/08/2024 Medications Active Medications SIG Qnty Indications Ordering Provider Date [id number] Tablets Take 1 Tablet By Mouth Twice A Day Unknown Duloxetine [id number] Caps DR Part Take 1 Capsule By Mouth Every Day Unknown Propranolol LSA14nx Tablets Take 1 Tablet By Mouth Twice A Day Unknown Vital Signs Date Vital Result Comment 02/08/2024 9:38am BP Systolic 112 mmHg BP Diastolic 70 mmHg Heart Rate 73 /min Height 67 inches 5'7 Weight 151.12 lb BMI (Body Mass Index) 23.7 kg/m2 Results Test Acquired Date Facility Test Result H/L Range N ote Laboratory test finding 02/08/2024 [facility] TSH Rfx on Abnormal to Free T4 1.350 uIU/mL 0.450-4.500 Procedures Date Code Description Status 07/19/2024 NSHOWOFF No Show Office Visit Complet ed Medical Devices Description No Information Available Encounters Type Date Location Provider Dx Diagnosis Office Visit 02/08/2024 9:30a Main Office Pan Tee M.D. 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 Plan of Treatment No Information Available Functional Status Description No Information Available Mental Status Description No Information Available Referrals Description No Information Available
== END 2024-10-11 09:09 | disposition home or self-care (01) ==
PROVIDERS: PCP Nurse Practitioner Family; Visit Provider Nurse Practitioner Family
DX: E05.00 Thyrotoxicosis with diffuse goiter without thyrotoxic crisis or storm (principal); E78.2 Mixed hyperlipidemia; F33.0 Major depressive disorder, recurrent, mild; R73.03 Prediabetes; F90.0 Attention-deficit hyperactivity disorder, predominantly inattentive type; Z13.9 Encounter for screening, unspecified

== ENCOUNTER → 2024-10-11 08:27 | Outpatient (BNVA) | payer OTHER, SELFPAY | PROVIDERS: PCP Nurse Practitioner Family; Visit Provider Nurse Practitioner Family | DX: E05.00 Thyrotoxicosis with diffuse goiter without thyrotoxic crisis or storm (principal); E78.2 Mixed hyperlipidemia; F33.0 Major depressive disorder, recurrent, mild; R73.03 Prediabetes; F90.0 Attention-deficit hyperactivity disorder, predominantly inattentive type; Z79.899 Other long term (current) drug therapy | CPT/HCPCS: 83036; 96127 ==

== ENCOUNTER 2024-10-11 09:13 | Outpatient (REF) | payer OTHER, SELFPAY ==
--- OUTSIDE RECORDS SUMMARY | 2024-10-11 10:14 | XMS_ITS | Continuity of Care Document ---
Author Organization [facility] [address] [facility] [address] [place] [address] Phone [phone] Problems Active Problems Provider Date Graves' disease Pan Tee M.D. Onset: 0 02/08/2024 Social History Type Date Description Comments Sex Unknown Lives With Spouse ETOH Use Denies alcohol use Tobacco Use Start: Unknown Patient has never smoked Allergies and adverse reactions Active Allergies Criticality Reaction Severity Comments Date Lamotrigine Unable to assess criticality 02/08/2024 Medications Active Medications SIG Qnty Indications Ordering Provider Date [id number] Tablets Take 1 Tablet By Mouth Twice A Day Unknown Duloxetine [id number] Caps DR Part Take 1 Capsule By Mouth Every Day Unknown Propranolol IUR25ic Tablets Take 1 Tablet By Mouth Twice [...]
[2024-10-11 12:32] LABS: Alanine Aminotransferase 33 U/L (0-40); Albumin Level 4.5 g/dL (3.5-5.0); Alkaline Phosphatase 127 U/L (39-117); Anion Gap 11 (12-20); Aspartate Amino Transferase 28 U/L (5-37); Bilirubin Total 0.3 mg/dL (0.0-1.0); Blood Urea Nitrogen 13 mg/dL (9-16); Calcium 9.2 mg/dL (8.4-10.2); Carbon Dioxide 29 mmol/L (22-29); Chloride 104 mmol/L (96-108); Cholesterol 185 mg/dL (<200); Estimated Glomerular Filt Rate > 60; Glucose Random 124 mg/dL (60-115); HDL Cholesterol 53 mg/dL (>40); LDL Cholesterol Calculated 117 mg/dL (<100); Potassium 4.4 mmol/L (3.3-5.1); Sodium 140 mmol/L (135-145); Total Protein 7.7 g/dL (6.5-8.0); Triglycerides 77 mg/dL (<150)
[2024-10-11 12:50] LABS: TSH reflex Free T4 21.07 uIU/mL (0.32-4.0)
[2024-10-11 13:23] LABS: Free T4 (Free Thyroxine) 0.76 ng/dL (0.71-1.85)
== END 2024-10-11 09:14 | disposition home or self-care (01) ==
LOC: HO.WFDLDS 09:13
PROVIDERS: Visit Provider Nurse Practitioner Family
DX: E78.2 Mixed hyperlipidemia (principal); R73.03 Prediabetes; E78.5 Hyperlipidemia, unspecified; E05.00 Thyrotoxicosis with diffuse goiter without thyrotoxic crisis or storm
CPT/HCPCS: 36415; 80053; 80061; 84439; 84443

== ENCOUNTER 2025-04-11 11:49 | Outpatient (AMB) | payer OTHER, SELFPAY ==
--- NOTE | 2025-04-11 11:50 | MHC.PC.OV ---
Vital Signs 04/11/25 11:56 04/11/25 12:34 Height 5 ft 7 in Weight 145 lb 2 oz BMI 22.7 BP 144/82 H 128/68 Blood Pressure Location Rt brachial Rt brachial Position Sitting Sitting Respiration 13 Pulse 82 Pulse Source Pulse Oximeter Temp 96.9 F Temp Source Oral Pulse Oximetry (%) 100 Oxygen Delivery Method Room Air Intake Visit Reasons: 6 mo CPE Intake Note: CPE. [facility] told he had high blood pressure she needs to follow up on. 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 Required: No Allergies lamotrigine Allergy (Severe, Verified 04/11/25 12:18) Anaphylaxis Medication List - Last Reconciled 04/11/25 by ROXANNE Anderson-BC atomoxetine mg PO QAM atorvastatin 20 mg PO BEDTIME duloxetine 40 mg PO DAILY duloxetine mg PO DAILY valacyclovir 500 mg PO BID PRN Tobacco use date assessed: 04/11/25 Dental Screening Dental Screen Date: 04/11/25 Did you have a dental visit in the last 12 months?: Yes Did you have a dental problem in the last 6 months where you did not have access to dental care?: No Was dental information given to patient?: Patient has dentist HPI HPI Comments History of Present Illness Details 49 y/o M with graves disease, MDD, prediabetes, hyperlipidemia, ADHD Surgery - none 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 Specialists: [facility] Dr Pan Tee 12/2024 recommended stopping methimazole -- [facility]/psychiatry - no longer active History of Present Illness - The patient is a 49-year-old male presenting for a complete physical exam. - Has history of anxiety, depression, ADHD, managed by duloxetine. No longer active w/ prescriber. Mom . Got . Denies si/hi. Mood stable. I will cover duloxetine refills. Bought [employer] in [place], [place]. -Graves? disease active w/ endocrinology- due for fu and repeat labs. i will order today and cc results. he cont on methimazole. - hyperlipidemia managed with atorvastatin. + intentional wt loss. - HSV controlled. - BP SBP > 140 today and at outside office visit. Denies cardiac sx. Recheck WNL Health Maintenance - Colonoscopy scheduled for April 16 - Tetanus shot up to date, administered in 2015. - Received shingles vaccine, both doses. - Recommended flu vaccination - Eye exam conducted within last two years. Wears glasses. Review of Systems - General: Denies significant weight loss. - Cardiovascular: No chest pain; recent blood pressures elevated. - Endocrine: Concerns regarding management of Graves? disease. - Musculoskeletal: Past muscle aches. - Psychiatric: Reports stress management, well-controlled with medication. - Genitourinary: Recent STD screening. Physical Exam General: Well developed, well nourished, in no acute distress. Appears stated age. Head: Normocephalic, atraumatic. Eyes: Pupils are equal, round and reactive to light and accommodation. Conjunctivae are clear. Vision grossly normal. Ears: TMs clear AU, EACS WNL Nose: Patent, without discharge. Neck: Supple, no adenopathy or thyromegaly. Breast: Edu on SBE Lungs: Clear to auscultation bilaterally. No rales, rhonchi or wheeze noted. Good air flow in all phillips. Heart: Regular rate and rhythm. No murmurs, click, rubs or gallops are noted. Abdomen: Bowel sounds present in all quadrants. The abdomen is soft, nontender, with no masses or organomegaly noted. No hernias are noted. : Deferred. Reviewed JENNYFER & recommendation Pulses: Peripheral pulses are equal and palpable bilaterally. Extremities: No clubbing, cyanosis nor edema is noted. Neurologic: Gait and station normal. Cranial Nerves 2-12 intact. Motor strength grossly symmetrical and intact. No sensory loss. Balance normal. Skin: No rashes, ulcers, or lesions noted. Turgor is good. Skin color is good. Hair and nails are without abnormalities. Psych: Normal eye contact, affect and mood appropriate, and normal interactions. Patient is alert and appropriate to context. Results Pending Discussion Notes During this visit, we discussed the concerns about the management of his Graves' disease medications, noting his jewish thought professor's recent advice against long-term use. Yet, the patient continues due to stable previous lab values. His depressive and ADHD symptoms were discussed in relation to past medication adjustments that were unsuccessful; the patient reverted to duloxetine, which he finds stabilizes his condition amidst stress. We reviewed lifestyle changes including recent relocation and job satisfaction despite ongoing personal life changes. I recommended flu vaccination despite reported adverse effects, and encouraged premedication with acetaminophen. Future lab work, including thyroid levels, was outlined with consultations anticipated to coordinate care with the jewish thought professor. Patient was given time to ask questions. All questions were answered to their satisfaction. Assessment and Plan 1. Anxiety and Depression - Continue current regimen of duloxetine. 2. Attention-Deficit/Hyperactivity Disorder - Controlled with current duloxetine use. 3. Hyperlipidemia - Maintain atorvastatin therapy. 4. Graves? Disease - Continue medication, discuss further with jewish thought professor. 5. Prediabetes - Monitor labs today. 6. Preventive Testing/Procedures - Proceed with planned colonoscopy; monitor blood pressure regularly, if SBP remains > 140, please call ; flu vaccine discussions on adverse effects and premedication. Patient Instructions - Continue taking prescribed medications as advised. - Monitor your blood pressure and report any consistent readings over 140 mmHg. - Schedule flu vaccination and consider taking acetaminophen to reduce side effects. - Undergo the scheduled colonoscopy and follow any prep instructions. - Notify your jewish thought professor of your lab results. - Contact the office if symptoms worsen or new issues arise. - RTO 6 mo mood/lipids/labs, sooner as needed Consent Patient was informed and verbally consented to the use of an ambient scribe for clinic note documentation during this visit. An additional 10 minutes was spent addressing the problem(s) noted at todays visit. This includes time spent before the visit reviewing the chart, time spent during the visit, and time spent after the visit on documentation reviewing laboratory results, diagnostic imaging, medications, performing a medically necessary evaluation, counseling on diagnoses, care coordination, ordering appropriate tests, ordering appropriate medications, review of tests performed by other providers, reporting test results with the patient, communication with other healthcare providers. [facility] Medical History (Updated 04/11/25 @ 12:48 by MANUELA Anderson) Depression Graves disease Surgical History (Updated 11/23/23 @ 09:58 by Slime Manrique CMA) No pertinent past surgical history Social History (Updated 11/23/23 @ 09:58 by Slime Manrique CMA) Household Members: None Housing: Apartment Are you a primary summer child caregiver to a significant other at home: No Do you presently have visiting nurse or other home services: No 75 years or older and lives alone: No Alcohol intake: never Patient Tobacco Use Status: Never used Tobacco e-Cigarette/Vaping Use: Never Used service: Yes ( [employer] ) Current occupational status: employed 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 Has optho.) Questionnaire PHQ-9 Over the last 2 weeks, how often have you been bothered by any of the following problems? 1. Little interest or pleasure in doing things: not at all 2. Feeling down, depressed, or hopeless: not at all 3. Trouble falling or staying asleep, or sleeping too much: not at all 4. Feeling tired or having little energy: not at all 5. Poor appetite or overeating: not at all 6. Feeling bad about yourself - or that you are a failure or have let yourself or your family down: not at all 7. Trouble concentrating on things, such as reading the newspaper or watching television: not at all 8. Moving or speaking so slowly that other people could have noticed. Or the opposite - being so fidgety or restless that you have been moving around a lot more than usual: not at all 9. Thoughts that you would be better off or of hurting yourself in some way: not at all Total score: 0 Depression Screening Interpretation: Negative Depression Screening Done: Yes 42436 - PHQ-9 Billing: Yes Source: Developed by Drs. Ramiro Moreira, Rosita Pereyra, Rachid Barriga and colleagues, with an educational cem from [employer]. Thrive Questionnaire Date Thrive assessed: 04/11/25 I am a: Patient What is your living situation today?: I have a steady place to live Within the past 12 months, did the food you bought not last and you didn't have the money to get more?: Never true Within the past 12 months, did you worry whether your food would run out before you got money to buy more?: Never true Do you have trouble paying for medicines?: No Do you have trouble getting transportation to medical appointments?: No Do you have trouble paying your heating and electricity bill?: No Do you have trouble taking care of your child, family member or friend?: No Do you have trouble with day-to-day activities such as bathing, preparing meals, shopping, managing finances, etc.?: No Are you currently unemployed and looking for a job?: No Are you interested in more education?: No Please select the resources that you would like help with: None Currently or been in a relationship where the following occur: No concerns reported THRIVE Score: 0 MANDI-7 AMB Questionnaire MANDI-7 Date MANDI - 7 assessed: 04/11/25 Feeling nervous, anxious, or on edge: 0 = Not at all Not being able to stop or control worryin = Not at all Worrying too much about different things: 0 = Not at all Trouble relaxin = Not at all Being so restless that it is hard to sit still: 0 = Not at all Becoming easily annoyed or irritable: 0 = Not at all Feeling afraid as if something awful might happen: 0 = Not at all Total MANDI-7 score (0-4 normal; 5-9 mild; 10-14 moderate; 15-21 severe): 0 Source: Developed by Drs. Ramiro Moreira, Rosita Pereyra, Rachid Barriga and colleagues, with an educational cem from [employer]. MANDI-7 Assessment Billing MANDI-7 Assessment Tool: MANDI-7 Assessment 74788 Physical exam (Primary Care) Vital Signs: Last Vital Signs Temp 96.9 F 04/11/25 11:56 Pulse 82 04/11/25 11:56 Resp 13 04/11/25 11:56 BP 144/82 H 04/11/25 11:56 Pulse Ox 100 04/11/25 11:56 Oxygen Delivery Method Room Air 04/11/25 11:56 BMI result Body Mass Index 22.7 Tobacco/Smoking Status: Tobacco use Status Tobacco use date assessed 04/11/25 04/11/25 11:57 Patient Tobacco Use Status Never used Tobacco 04/11/25 11:57 e-Cigarette/Vaping Use Never Used 04/11/25 11:57 PHQ-9: PHQ-9 Score PHQ-9: Total score 0 04/11/25 11:57 Depression Screening Interpretation: Negative Thrive Assessment: Date of Thrive Assessment Date Thrive assessed 04/11/25 04/11/25 11:57 Currently or been in a relationship where the following occur: No concerns reported Coding Level of Care Code Est Pt Level 2 (11094) Est Pt Prev Care 40-64y(81627) Diagnoses Encounter for general adult medical examination without abnormal findings Z00.00 Mild episode of recurrent major depressive disorder F33.0 Major depression recurrence: recurrent Active/Remission status: currently active Major depression episode severity: mild Attention deficit hyperactivity disorder (ADHD), predominantly inattentive type F90.0 Attention deficit-hyperactivity disorder type: predominantly inattentive Mixed hyperlipidemia E78.2 Hyperlipidemia type: mixed hyperlipidemia Prediabetes R73.03 Graves disease E05.00 Additional Codes MANDI-7 Assessment Billing - MANDI-7 Assessment Tool: MANDI-7 Assessment 29120 ([id number]) PHQ-9 - 31504 - PHQ-9 Billing: Yes ([id number]) Assessment & Plan Assessment & Plan (1) Encounter for general adult medical examination without abnormal findings: Onset Date: ~04/11/25 Code(s): Z00.00 - Encounter for general adult medical examination without abnormal findings Category: Medical (2) MDD (major depressive disorder): Comment: on Anibal. Continue. Code(s): F32.9 - Major depressive disorder, single episode, unspecified Category: Medical Qualifiers: Major depression recurrence: recurrent Active/Remission status: currently active Major depression episode severity: mild Qualified Code(s): F33.0 - Major depressive disorder, recurrent, mild (3) ADHD: Code(s): F90.9 - Attention-deficit hyperactivity disorder, unspecified type Category: Medical Qualifiers: Attention deficit-hyperactivity disorder type: predominantly inattentive Qualified Code(s): F90.0 - Attention-deficit hyperactivity disorder, predominantly inattentive type (4) Hyperlipidemia: Code(s): E78.5 - Hyperlipidemia, unspecified Category: Medical Qualifiers: Hyperlipidemia type: mixed hyperlipidemia Qualified Code(s): E78.2 - Mixed hyperlipidemia (5) Prediabetes: Code(s): R73.03 - Prediabetes Category: Medical (6) Graves disease: Comment: active w/ endo for mgmt & to optho for routine eye exam Code(s): E05.00 - Thyrotoxicosis with diffuse goiter without thyrotoxic crisis or storm Category: Medical Plan . Orders: Orders Comprehensive Met. Panel Today E05.00 - Thyrotoxicosis with diffuse goiter without thyrotoxic crisis or storm, E78.2 - Mixed hyperlipidemia, R73.03 - Prediabetes Lipid Panel Today E05.00 - Thyrotoxicosis with diffuse goiter without thyrotoxic crisis or storm, E78.2 - Mixed hyperlipidemia, R73.03 - Prediabetes Microalbumin, Random (w Creat) Today E05.00 - Thyrotoxicosis with diffuse goiter without thyrotoxic crisis or storm, E78.2 - Mixed hyperlipidemia, R73.03 - Prediabetes Prostate Specific Antigen Scr Today E05.00 - Thyrotoxicosis with diffuse goiter without thyrotoxic crisis or storm, E78.2 - Mixed hyperlipidemia, R73.03 - Prediabetes TSH reflex Free T4 Today E05.00 - Thyrotoxicosis with diffuse goiter without thyrotoxic crisis or storm, E78.2 - Mixed hyperlipidemia, R73.03 - Prediabetes Lipid Panel 6 Months E78.2 - Mixed hyperlipidemia, R73.03 - Prediabetes Hemoglobin A1c 6 Months E78.2 - Mixed hyperlipidemia, R73.03 - Prediabetes Complete Blood Count no Diff Today E05.00 - Thyrotoxicosis with diffuse goiter without thyrotoxic crisis or storm, E78.2 - Mixed hyperlipidemia, R73.03 - Prediabetes Hemoglobin A1c Today E05.00 - Thyrotoxicosis with diffuse goiter without thyrotoxic crisis or storm, E78.2 - Mixed hyperlipidemia, R73.03 - Prediabetes Vitamin B12 and Folate Today E05.00 - Thyrotoxicosis with diffuse goiter without thyrotoxic crisis or storm, E78.2 - Mixed hyperlipidemia, R73.03 - Prediabetes Vitamin D 25-OH Total Today E05.00 - Thyrotoxicosis with diffuse goiter without thyrotoxic crisis or storm, E78.2 - Mixed hyperlipidemia, R73.03 - Prediabetes Medications: New methimazole 5 mg PO DAILY duloxetine 60 mg PO DAILY 90 caps 2RF Patient Instructions: Health screenings for men You should visit your health care provider regularly, even if you feel healthy. The purpose of these visits is to: Screen for medical issues Assess your risk for future medical problems Encourage a healthy lifestyle Update vaccinations and other preventive care services Help you get to know your provider in case of an illness Information Even if you feel fine, you should still see your provider for regular checkups. These visits can help you avoid problems in the future. For example, the only way to find out if you have high blood pressure is to have it checked regularly. High blood sugar and high cholesterol level also may not have any symptoms in the early stages. Simple blood tests can check for these conditions. There are specific times when you should see your provider or receive specific health screenings. The [place] Preventive Services Task Force publishes a list of recommended screenings. Below are screening guidelines for men ages 40 to 64. BLOOD PRESSURE SCREENING Have your blood pressure checked at least once every year. Watch for blood pressure screenings in your area. Ask your provider if you can stop in to have your blood pressure checked. Ask your provider if you need your blood pressure checked more often if: You have diabetes, heart disease, kidney problems, or are overweight or have certain other health conditions You have a first-degree relative with high blood pressure You are Black Your blood pressure top number is from 120 to 129 mm Hg, or the bottom number is from 70 to 79 mm Hg If the top number is 130 mm Hg or greater or the bottom number is 80 mm Hg or greater, this is considered stage 1 hypertension. Schedule an appointment with your provider to learn how you can lower your blood pressure. Effects of age on blood pressure CHOLESTEROL SCREENING Cholesterol screening should begin at age 35 for men with no known risk factors for coronary heart disease. Repeat cholesterol screening should take place: Every 5 years for men with normal cholesterol levels More often if changes occur in lifestyle (including weight gain and diet) More often if you have diabetes, heart disease, kidney problems, or certain other conditions COLORECTAL CANCER SCREENING If you are under age 45, talk to your provider about getting screened. You may need to be screened if you have a strong family history of colon cancer or polyps. Screening may also be considered if you have risk factors such as a history of inflammatory bowel disease or polyps. If you are age 45 to 75, you should be screened for colorectal cancer. There are several screening tests available: A stool-based fecal occult blood (gFOBT) or fecal immunochemical test (FIT) every year A stool sDNA test every 1 to 3 years Flexible sigmoidoscopy every 5 years or every 10 years with stool testing FIT done every year CT colonography (virtual colonoscopy) every 5 years Colonoscopy every 10 years You may need a colonoscopy more often if you have risk factors for colorectal cancer, such as: Ulcerative colitis A personal or family history of colorectal cancer A history of growths in your colon called adenomatous polyps DENTAL EXAM Go to the dentist once or twice every year for an exam and cleaning. Your dentist will evaluate if you have a need for more frequent visits. DIABETES SCREENING All adults who do not have risk factors for diabetes should be screened starting at age 35 and repeated every 3 years. If you have other risk factors for diabetes, such as a first degree relative with diabetes, overweight or obesity, high blood pressure, prediabetes, or a history of heart disease, you may be tested more often. If you are overweight and have other risk factors, such as high blood pressure and are planning to become , screening is recommended. EYE EXAM Have an eye exam every 2 to 4 years ages 40 to 54 and every 1 to 3 years ages 55 to 64. Your provider may recommend more frequent eye exams if you have vision problems or glaucoma risk. Have an eye exam that includes an examination of your retina (back of your eye) at least every year if you have diabetes. IMMUNIZATIONS Commonly needed vaccines include: Flu shot: get one every year COVID-19 vaccine: ask your provider what is best for you Tetanus-diphtheria and acellular pertussis (Tdap) vaccine: have as one of your tetanus-diphtheria vaccines if you did not receive it as an adolescent Tetanus-diphtheria: have a booster (or Tdap) every 10 years Varicella vaccine: receive 2 doses if you never had chickenpox or the varicella vaccine and were born in 1979 or after Hepatitis B vaccine: receive 2, 3, or 4 doses, depending on your exact circumstances, if you did not receive these as a child or adolescent, until age 59 Shingles (herpes zoster) vaccine: at or after age 50 Ask your provider if you should receive other immunizations, especially if you have certain medical conditions, such as diabetes or are at increased risk for some diseases such as pneumonia. INFECTIOUS DISEASE SCREENING Screening for hepatitis C: all adults ages 18 to 79 should get a one-time test for hepatitis C. Screening for human immunodeficiency virus (HIV): all people ages 15 to 65 should get a one-time test for HIV. Depending on your lifestyle and medical history, you may need to be screened for infections such as syphilis, chlamydia, and other infections. LUNG CANCER SCREENING You should have an annual screening for lung cancer with low-dose computed tomography (LDCT) if: You are age 50 to 80 years AND You have a 20 pack-year smoking history AND You currently smoke or have quit within the past 15 years OSTEOPOROSIS SCREENING If you are age 50 to 64 and have risk factors for osteoporosis, you should discuss screening with your provider. Risk factors can include long-term steroid use, low body weight, smoking, heavy alcohol use, having a fracture after age 50, or a family history of hip fracture or osteoporosis. Osteoporosis PHYSICAL EXAM All adults should visit their provider from time to time, even if they are healthy. The purpose of these visits is to: Screen for diseases Assess risk of future medical problems Encourage a healthy lifestyle Update vaccinations and other preventive care services Maintain a relationship with a provider in case of an illness Your height, weight, and body mass index (BMI) should be checked at every exam. During your exam, your provider may ask you about: Depression and anxiety Diet and exercise Alcohol and tobacco use Safety, such as use of seat belts and smoke detectors Your medicines and risk for interactions PROSTATE CANCER SCREENING If you're 55 through 69 years old, before having the test, talk to your provider about the pros and cons of having a PSA test. Ask about: Whether screening decreases your chance of dying from prostate cancer. Whether there is any harm from prostate cancer screening, such as side effects from testing or overtreatment of cancer when discovered. Whether you have a higher risk of prostate cancer than others. If you are age 55 or younger, screening is not generally recommended. You should talk with your provider about if you have a higher risk for prostate cancer. Risk factors include: Having a family history of prostate cancer (especially a brother or father) Being If you choose to be tested, the PSA blood test is repeated over time (yearly or less often), though the best frequency is not known. Prostate examinations are no longer routinely done on men with no symptoms. Prostate cancer SKIN EXAM Your provider may check your skin for signs of skin cancer, especially if you're at high risk. People at high risk include those who have had skin cancer before, have close relatives with skin cancer, or have a weakened immune system. TESTICULAR EXAM The [place] Preventive Services Task Force (USPSTF) now recommends against performing testicular self-exams. Doing testicular self-exams has been shown to have little to no benefit.
[2025-04-11 11:56] VITALS: BP 144/82; PULSE 82; RESP 13; TEMP 36.1; O2SAT 100; BMI 22.7
[2025-04-11 12:34] VITALS: BP 128/68
--- OUTSIDE RECORDS SUMMARY | 2025-04-11 13:28 | XMS_ITS | Clinical Summary ---
Author Organization [facility] [address] [facility] Address [address] [place] [address] Phone Care Team Providers Care Customer Operations Specialist Name Role Phone SamyLizzHeribertoVi manzo ROXANNE Primary Care Provider [phone] Allergies Active Allergy Reactions Criticality Noted Date Comments Lamotrigine 01/15/2025 Medications atomoxetine (STRATTERA) 10 mg capsule Take by mouth 1 (one) time each day. Swallow capsule whole; do not open. If opened accidentally, do not touch eyes; wash hands immediately (product is an eye irritant). Active atorvastatin (LIPITOR) 20 mg tablet Take 1 tablet (20 mg total) by mouth at bedtime. Active DULoxetine (CYMBALTA) [address] capsule Take 2 capsules (40 mg total) by mouth 1 (one) time each day. Do not crush or chew. Active valACYclovir (VALTREX) 500 mg tablet Take by mouth 2 (two) times a day. Active bisacodyL (DULCOLAX) 5 mg EC tablet Take 2 tablets by mouth right before beginning bowel prep. See instructions provided by the office 2 tablet 5 Active polyethylene glycol (Golytely) 236-22.74-6.74 -5.86 gram solution Take 4L by mouth once for one dose. May substitue any PEG. Starting at 2PM the day before your procedure drink 1 8oz glasses at your own pace until you complete half of the gallon. Finish 2nd half of the gallon at 8PM. 4000 mL 5 Active Encounters Date Type Department Care Team Description 01/15/2025 Telephone Gastroenterology - [address] [address] Uche Sanderson MD from Last 3 Months Social History Tobacco Use Types Packs/Day Years Used Date Smoking Tobacco: Never Assessed Sex and Gender Information Value Date Recorded Sex Assigned at Not on file Legal Sex Male 8:09 AM EDT Gender Identity Not on file Sexual Orientation Not on file Plan of Treatment Upcoming Encounters Date Type Department Care Team (Late st Contact Info) Description 04/16/2025 10:30 AM EDT Hospital Encounter [facility] [address] [place] [address] Uche Sanderson MD [address] [place] [phone] Health Maintenance Due Date Last Done Comments DTaP,Tdap,and Td Vaccines (1 - Tdap) 1992 Hepatitis B Vaccines (1 of 3 - 19+ 3-dose series) 1992 Pneumococcal Vaccine: 50+ Ye ars (1 of 1 - PCV) 2023 Zoster Vaccines (1 of 2) 2023 Depression Screening 08/08/2024 Cholesterol Screening (Lipid Panel) 01/15/2025 Colorectal Cancer Screening: Colonoscopy 01/15/2025 HIV Screening 01/15/2025 Hepatitis C Screening 01/15/2025 Social Influencers of Health Screening 01/15/2025 COVID-19 Vaccine (2023-2 5 season) 2025 Influenza Vaccine (#1) 2025 HIB Vaccines Aged Out No longer eligi ble based on patient's age to complete this topic HPV Vaccines Aged Out No longer eligi ble based on patient's age to complete this topic Hepatitis A Vaccines Aged Out No long er eligible based on patient's age to complete this topic IPV Vaccines Aged Out No longer eligi ble based on patient's age to complete this topic MMR Vaccines Aged Out No longer eligi ble based on patient's age to complete this topic Meningococcal ACWY Vaccine Aged Out N o longer eligible based on patient's age to complete this topic Meningococcal B Vaccine Aged Out No l onger eligible based on patient's age to complete this topic RSV Immunization Patients Un josie 20 months Aged Out No longer eligible b ased on patient's age to complete this topic Varicella Vaccines Aged Out No longer eligible based on patient's age to complete this topic Insurance [employer] Care Teams Customer Operations Specialist Relationship Specialty Start Date End Date Vi Rashid FNP [address] [place] [address] PCP - General Nurse Practitioner 01/15/25
== END 2025-04-11 12:45 | disposition home or self-care (01) ==
LOC: HO.HMCFM 11:50
PROVIDERS: PCP Nurse Practitioner Family; Visit Provider Nurse Practitioner Family
DX: Z00.00 Encounter for general adult medical examination without abnormal findings (principal); R73.03 Prediabetes; F33.0 Major depressive disorder, recurrent, mild; F90.0 Attention-deficit hyperactivity disorder, predominantly inattentive type; E78.2 Mixed hyperlipidemia; E05.00 Thyrotoxicosis with diffuse goiter without thyrotoxic crisis or storm

== ENCOUNTER 2025-04-11 11:49 | Outpatient (REF) | payer OTHER, SELFPAY ==
[2025-04-11 18:15] LABS: Hematocrit 47.2 % (42.0-52.0); Hemoglobin 15.8 g/dl (14.0-18.0); Mean Corpuscular HGB Conc 33.5 g/dl (31.0-36.0); Mean Corpuscular Hemoglobin 30.3 pg (27.0-33.0); Mean Corpuscular Volume 90.6 fL (80.0-98.0); NRBC Abs Auto 0.000 X10*3/uL (0.0-0.012); NRBC Pct Auto 0.0 /100WBC (0.0-0.2); Platelet Count 228 X10*3/uL (160-400); Red Blood Count 5.21 X10*6/uL (4.60-5.80); White Blood Count 6.3 X10*3/uL (4.8-10.8)
[2025-04-11 18:49] LABS: Alanine Aminotransferase 39 U/L (0-40); Albumin Level 5.0 g/dL (3.5-5.0); Alkaline Phosphatase 93 U/L (39-117); Anion Gap 13 (12-20); Aspartate Amino Transferase 31 U/L (5-37); Blood Urea Nitrogen 11 mg/dL (9-16); Calcium 9.3 mg/dL (8.4-10.2); Carbon Dioxide 29 mmol/L (22-29); Chloride 103 mmol/L (96-108); Cholesterol 153 mg/dL (<200); Estimated Glomerular Filt Rate > 60; HDL Cholesterol 50 mg/dL (>40); Potassium 4.6 mmol/L (3.3-5.1); Sodium 140 mmol/L (135-145); Total Protein 7.8 g/dL (6.5-8.0); Triglycerides 71 mg/dL (<150)
[2025-04-11 19:03] LABS: Folate 7.6 ng/mL (> or = 4.0); Vitamin B12 509 pg/mL (200-900)
[2025-04-11 19:55] LABS: Free T4 (Free Thyroxine) 0.98 ng/dL (0.71-1.85)
== END 2025-04-11 11:50 | disposition home or self-care (01) ==
LOC: HO.WFDLDS 11:49
PROVIDERS: PCP Nurse Practitioner Family; Visit Provider Nurse Practitioner Family
DX: Z00.00 Encounter for general adult medical examination without abnormal findings (principal); F33.0 Major depressive disorder, recurrent, mild; Z12.5 Encounter for screening for malignant neoplasm of prostate; F90.0 Attention-deficit hyperactivity disorder, predominantly inattentive type; E05.00 Thyrotoxicosis with diffuse goiter without thyrotoxic crisis or storm; E78.2 Mixed hyperlipidemia; R73.03 Prediabetes
CPT/HCPCS: 36415; 80053; 80061; 82306; 82570; 82607; 82746; 83036; 84153; 84439; 84443; 85027; 96127